=== PATIENT | female | born 1985 | race Two or more races ===

== ENCOUNTER 2020-02-21 10:31 | Emergency (ER) | payer MEDICAID, OTHER ==
[~2020-02-21] VITALS: Ht 162.6 cm; Wt 69.9 kg
[2020-02-21] MEDS ORDERED: DIPH,PERTUSS(ACELL),TET VAC/PF 0.5 ML IM-VACC ONE ×2 (11:00→12:25)
--- NOTE | 2020-02-21 12:14 | NUR ---
PT TO [facility] FROM [facility]
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
[2020-02-21] MEDS ORDERED: NEOSPORIN OINT. PKT 1 PACKET ONE (12:38)
[2020-02-21 13:00] VITALS: BP 114/72
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
== END 2020-02-21 13:07 | disposition home or self-care (01) ==
LOC: ED 11:01
DX: S61.213A Laceration without foreign body of left middle finger without damage to nail, initial encounter (principal); X58.XXXA Exposure to other specified factors, initial encounter; Y93.89 Activity, other specified; Y92.89 Other specified places as the place of occurrence of the external cause; Y99.8 Other external cause status
CPT/HCPCS: 90471; 90715; 99283